=== PATIENT | male | born 1965 | race Caucasian/White ===

== ENCOUNTER 2024-02-04 19:38 | Emergency (ER) | payer SELFPAY ==
[2024-02-04 19:49] VITALS: BP 164/86; PULSE 94; RESP 18; TEMP 99; BMI 21.9
[2024-02-04] MEDS ORDERED: DIPHTH,PERTUSS(ACELL),TET 0.5 ML DISP.SYRIN IM ONE ×2 (21:01→21:04)
[2024-02-04] MEDS: DIPHTH,PERTUSS(ACELL),TET 0.5 ML DISP.SYRIN IM ONE (21:03)
== END 2024-02-04 22:00 | disposition home or self-care (01) ==
LOC: JERFT 19:38
PROC: 0HQLXZZ Repair Left Lower Leg Skin, External Approach (ICD-10-PCS; principal; 2024-02-04)
PROC: 3E0234Z Introduction of Serum, Toxoid and Vaccine into Muscle, Percutaneous Approach (ICD-10-PCS; 2024-02-04)
DX: S81.011A Laceration without foreign body, right knee, initial encounter (principal); W26.8XXA Contact with other sharp object(s), not elsewhere classified, initial encounter; Z23 Encounter for immunization
CPT/HCPCS: 90715; 99284-25

== ENCOUNTER 2024-02-14 11:20 | Emergency (ER) | payer SELFPAY ==
[2024-02-14 11:25] VITALS: BP 143/76; PULSE 76; RESP 18; TEMP 98.1; BMI 21.9
== END 2024-02-14 11:58 | disposition home or self-care (01) ==
LOC: JERFT 11:20
DX: Z48.02 Encounter for removal of sutures (principal)
CPT/HCPCS: 99281-25